=== PATIENT | female | born 1985 | race Caucasian/White ===

== ENCOUNTER 2017-02-02 01:21 | Inpatient (IN) | payer OTHER ==
[~2017-02-02] VITALS: Ht 160 cm; Wt 99.8 kg
[2017-02-02] MEDS ORDERED: PREN1TAB87 PO (07:49)
[2017-02-02] MEDS ORDERED: Methylergonovine 0.2 mg/mL Inj IM PRN ×2 (07:50→19:20)
[2017-02-02] MEDS ORDERED: Oxytocin 10 Unit/mL Inj IM PRN ×2 (07:50→19:20)
[2017-02-02] MEDS ORDERED: Carboprost 250 mCg/mL Inj IM PRN ×2 (07:50→19:20)
[2017-02-02] MEDS ORDERED: Hemorrhage Kit, Post Partum XX ONE ×2 (07:50→19:20)
--- NOTE | 2017-02-02 08:08 | PCM.HPOB ---
Subjective Date of Service: Feb 02, 2017 Referring Provider: Admitting Physician: Almaz Poole MD Primary Care Physician: Almaz Poole MD Attending Physician: Almaz Poole MD Chief Complaint Elective IOL History of Present History of Present Illness Patient is a 31 year old at 39 weeks 5 day GA with an HEIDI of 02/04/2017 based on first trimester ultrasound who presented to the [facility] for an elective induction. She continues to have contractions every 10-30 minutes, on average every 16 minutes. She felt a trickle of fluid on Wednesday evening but has not felt more fluid gushes since then. On Wednesday, she had 3 negative SROM tests. She has not had any vaginal bleeding. She has a mild frontal headache. No vision changes, upper abdominal pain, vomiting, chest pain , dyspnea, dizziness, lightheadedness, or increased swelling in her legs. During this , she has had fundal height greater than dates but most recent ultrasound showed EFW percentile 55% on 12/24/2016. She is also GBS positive. She also was admitted for elective IOL on 01/29, but there was no progress after Cervidil, Oxytocin, and cervical balloon ripening, so she was d/ c home. OB History: (3), Para (2) Past Medical History Obstetrical History: Obstetrical History: History of 2 prior NSVDs with induction by Pitocin in 2005 and 2007 Gynecologic History: Menarche 9 years old Medical History: Seasonal allergies Surgical History: Knee surgery Tonsillectomy Hx Tobacco Use: No Hx Alcohol Use: No Hx Substance Use: No Past Family History Family History Extensive family history of HTN Living Arrangement: with Family Genetic Screening/Counseling Genetic Screening/Counseling: Negative Baby father-had child w defect: No Review of Systems Constitutional: Y: Pain, Fever Eyes: Denies: Blurred Vision, Vision Changes ENT: Denies: Nose Pain, Throat Pain Cardiovascular: Reports: Edema, Denies: Chest Pain Respiratory: Denies: Cough, Wheezing Gastrointestinal: Reports: Abdominal Pain, Denies: Diarrhea, Vomiting Genitourinary: Denies: Dysuria, Incontinence Musculoskeletal: Denies: Redness, Swelling Skin/Breasts: Denies: Discharge, Lesions Skin: Denies: Rash, Ulcers Neurological: Denies: Confusion, Weakness Psychologic: Denies: Agitation, Depression Medications Home medications Vitamins Allergy Coded Allergies: Penicillins (Verified Allergy, Severe, Anaphylaxis, 01/29/17) latex (Verified Adverse Reaction, Mild, Rash, 01/29/17) Exam Vital Signs BP 124/73, HR 82 bpm, respiratory rate 16, 36.3 C Exam FHR baseline 130s with moderate variability and accelerations, no decelerations noted. Cat I tracing. Objective Constitutional: Well-developed, Well-nourished, Obese HEENT: PERRLA, EOMI, Scleral Anicteric, Mucous Membr Moist/[place] Lungs: Clear to Auscultation, Normal Air Movement Heart: Exam Unremarkable, Regular Rate/Rhythm, Murmur Abdomen: Gravid, No tenderness Lymphatic: Normal: Axilla Palpation of Nodes, Neck Palpation of Nodes Extremities: Pulses Palpable x4, Warm, No Edema Skin: Other (warm, dry ,intact, no rashes noted) Neurological/Psychiatric: Alert, Oriented X3, Cooperative, No Acute Distress Neuro: Grossly Neurologically Intact, Reflexes 2+, Normal DTRs, Normal Tone, Normal Speech, Sensation Intact Gynecologic: Normal: Breasts Labs/Diagnostics Maternal Blood Type: B Hx Rho(D) Immune Globulin: No Antibody Screen: neg Group B Strep Results: Positive Rubella: Immune Additional Information Additional Information labs: blood type B positive, antibody negative, varicella immune, rubella immune, RPR non reactive, HBsAg negative, HIV non reactive, hepatitis C negative, HgbA1c 5.1%, TSH 1.350, 1 hour glucose tolerance test within normal limits, GBS positive OB Intrapartum Assessment/Plan Assessment 31 year old woman at 39 weeks 5 day gestation with an HEIDI of 02/04/2017 based on 6 weeks 5 days ultrasound. is complicated by GBS positive and failed first induction attempt on 01/29/2017 Intrapartum plan Admitted for elective IOL, 2nd attempt - Irregular contractions - Elective induction, start with Pitocin - Monitor patient for the next 4-5 hours, then will reassess cervix and consider cervical ripening - Anticipate - Continue routine intrapartum care GBS positive - Patient has history of an anaphylactic reaction to penicillin - Sensitivities of GBS culture were not performed - Vancomycin for prophylaxis per protocol Pain Evaluation: Adequate Pain Control VTE Mechanical Devices: Intermittant Pneumatic CD Post plan: Continue routine post care Javon Carrizales DO Feb 02, 2017 08:08
[2017-02-02] MEDS ORDERED: Vancomycin Inj 1,000 MG in IV Premix 1 EACH IV SCH ×2 (08:30→19:20)
[2017-02-02] MEDS: Lactated Ringer's 1,000 ML IV SCH ×6 (09:00→23:46)
[2017-02-02] MEDS: Oxytocin 30 Units/500 mL LR 30 UNITS in IV Premix 1 EACH IV PRN ×2 (09:01→19:34)
[2017-02-02 09:25] LABS: Mean Corpuscular Hemoglobin 29.9 pg (27.0-35.0); Mean Corpuscular Volume 90.5 fL (81-100)
[2017-02-02] MEDS ORDERED: Lidocaine 1%-Epi 1:100,000 20 mL Inj ONE (12:29)
[2017-02-02] MEDS ORDERED: MetoCLOpramide 5 mg/mL 2 mL Inj ONE (12:30)
[2017-02-02] MEDS ORDERED: Dexamethasone 4 mg/mL Inj ONE (12:30)
[2017-02-02] MEDS ORDERED: Phenylephrine 10,000 mCg/mL Inj ONE (12:30)
[2017-02-02] MEDS ORDERED: Ondansetron 2 mg/mL 2 mL Inj ONE (12:30)
[2017-02-02] MEDS ORDERED: Oxytocin 10 Unit/mL Inj ONE (12:30)
--- NOTE | 2017-02-02 14:07 | PCM.HPANE ---
Patient Data Surgeon Admitting Provider:Almaz Poole MD Attending Provider:Almaz Poole MD Primary Care Physician:Almaz Poole MD Other Provider:Giuseppe Chan Anesthesia Reason for Visit Induction INDUCTION Ht/WT & BMI Body Mass Index Allergies Coded Allergies: Penicillins (Verified Allergy, Severe, Anaphylaxis, 01/29/17) latex (Verified Adverse Reaction, Mild, Rash, 01/29/17) Past Anesthesia History Anesthesia History: Denies:: Abnormal Airway, Anesthesia Reactions, Difficult Intubation, Fam Anesthesia Reaction, Fam Malignant Hypertherm, Malignant Hyperthermia Medications Reported Medications Vit W-Ca,Fe,FA(<1 mg) ( Vitamins)1 Each Tablet1 Each PO DAILY 02/02/17 History History of ENT Problems?: No HEENT History: Denies:: Abnormal Airway Cataracts Difficult Intubation Dysphagia Glaucoma Hearing Problem Sinus Problem TMJ Denture Type: None Teeth Condition: Within Normal Limits Hx of Heart Problems?: No Cardiovascular History: Denies:: AICD Abdominal Aortic Aneurism Atrial Fibrillation Cardiac Surgery Chest Pain Congestive Heart Failure Coronary Artery Disease Edema Heart Murmur Hypertension Irregular Heartbeat Pacemaker Peripheral Vascular Rheumatic Fever Thrombophlebitis Valvular Heart Disease Hx of Respiratory Problem?: No Respiratory History: Denies:: Asthma COPD Chest Surgery Cough Dyspnea Emphysema Hemoptysis Oxygen Administration Pneumonia Pulmonary Embolism Tuberculosis Use of C-PAP Machine Use of Inhalers / NEBS Hx Neurologic Problems?: No Neurological History: Denies:: Alzheimer's Disease CVA Dementia Dizziness Headaches Multiple Sclerosis Parkinson's Disease Peripheral Neuropathy Seizures TIA Hx of GI Problems?: No Gastrointestinal History: Denies:: Cirrhosis Diverticulitis Gall Bladder Disease Gastroesphageal Reflux Gastrointestinal Bleeding Heartburn Hepatitis Hiatal Hernia Liver Disease Rectal Bleeding Hx of Problems?: No Hx Musculoskeletal Problems?: No Hx Surgeries?: Yes Hx Alcohol Use: NoHx Substance Use: No Smoking Status: Never Smoker Stop/Bang Risk Assessment Category Category 1A: Patient has history of documented sleep apnea, and HAS NOT received any narcotic, sedative or anesthesia administration during this stay. Category 1B: Patient has history of documented sleep apnea, and HAS received any narcotic , sedative or anesthesia administration during this stay Category 2: Patient has SUSPECTED Obstructive Sleep Apnea, and HAS received any narcotic , sedative or anesthesia administration during this stay. Category 3: Patient has SUSPECTED Obstructive Sleep Apnea and HAS NOT received narcotic, sedative or anesthesia administration during this stay. Category 4: Outpatient in Procedural Areas with known sleep apnea or who screen positive for High Risk via the STOP/BANG questionnaire. Exam Exam General Appearance: Alert, Oriented X3, Cooperative, No Acute Distress HEENT/AIRWAY: MP 2 Lungs: Clear to Auscultation, Normal Air Movement Heart: Exam Unremarkable, Regular Rate/Rhythm Meds/Labs/Diagnostics Admission Meds Current Medications Lactated Ringer's 1,000 ml @ 125 mls/hr Q8H IV Last administered on 02/02/17 09:00; Start 02/02/17 at 07:46 Vancomycin/0.9 % Sod Chloride/ Premix (Vancomycin Inj/ IV Premix) 200 ml @ 106.667 mls/hr Q12H IV Last administered on 02/02/17 09:01; Start 02/02/17 at 08:30 Labs Test 02/02/17 08:45 White Blood Count 9.7th/mm3 (3.8-10.1) Red Blood Count 4.12mil/mm3 (3.90-5.20) Hemoglobin 12.3g/dL (12.0-15.6) Hematocrit 37.3% (35.0-46.0) Mean Corpuscular Volume 90.5fL (81-100) Mean Corpuscular Hemoglobin 29.9pg (27.0-35.0) Mean Corpuscular Hemoglobin Concent 33.0% (32.0-37.0) Red Cell Distribution Width 13.9% (12.3-15.4) Platelet Count 325bil/L (150-400) Plan Impression Patient chart reviewed, patient interviewed and anesthestic plan with risks, benefits, and alternatives discussed, and informed consent obtained. ASA Physical Status: ASA2 Mod Systemic Disease Anesthetic Plan: Epidural Bene/Risks/Altern/Consents: Yes HP Complete Prior to Induction: Yes Maxi Allison MD Feb 02, 2017 14:03
[2017-02-02] MEDS ORDERED: Lactated Ringer's 500 ML IV ONE (14:39)
[2017-02-02] MEDS ORDERED: EPHEDrine Sulfate 50 mg/mL Inj IVPUSH PRN ×2 (14:40→19:25)
[2017-02-02] MEDS ORDERED: Ondansetron 2 mg/mL 2 mL Inj IVPUSH PRN ×2 (14:40→19:25)
[2017-02-02] MEDS ORDERED: fentaNYL 2 mCg/mL-Bupiv 0.125% 100 ML EPIDURAL SCH (14:40)
[2017-02-02] MEDS ORDERED: Atropine 1 mg/10 mL (Code) Syringe IVPUSH PRN (14:40)
[2017-02-02] MEDS: Sodium Chloride LOK Flush 10 mL Syringe IVFLUSH SCH (16:30)
[2017-02-02] MEDS ORDERED: Benzocaine (Dermoplast) 20% 60 Gm Spray TOPICAL PRN (19:20)
[2017-02-02] MEDS ORDERED: Measles-Mumps-Rubella Vaccine 0.5 mL Inj SUBQ ONE (19:20)
[2017-02-02] MEDS ORDERED: oxyCODONE-Acetamin 5-325 mg Tablet PO PRN (19:20)
[2017-02-02] MEDS ORDERED: Witch Hazel-Glycerin Pads TOPICAL PRN (19:20)
[2017-02-02] MEDS ORDERED: LANOlin HPA 7 Gm Ointment TOPICAL PRN (19:20)
[2017-02-02] MEDS ORDERED: Oxytocin 30 Units/500 mL LR 30 UNITS in IV Premix 1 EACH IV PRN (19:20)
[2017-02-02] MEDS ORDERED: Lactated Ringer's 1,000 ML IV PRN (19:21)
--- NOTE | 2017-02-02 19:21 | PCM.ANEP1 ---
Post Anesthesia PACU Phase 1 Assessment Anesthetic Administered: Epidural Level of Alertness: Awake, talking WATTS's with Equal Strength: No Pain: No Nausea or Vomiting: Yes CV Function & Hydration Stable: Yes Airway Device: Oxygen Delivery: Room Air Lungs: Clear to Auscultation, Normal Air Movement PACU Phase 2 Assessment Complications: No Patient Instructions Provided: N/A Maxi Allison MD Feb 02, 2017 19:21
[2017-02-02] MEDS ORDERED: Atropine 0.4 mg/mL Inj IV PRN (19:25)
[2017-02-02] MEDS ORDERED: fentaNYL-PF 50 mCg/mL 2 mL Inj IVPUSH PRN (19:25)
[2017-02-02] MEDS ORDERED: HYDROmorphone 1 mg/mL Inj IVPUSH PRN (19:25)
[2017-02-02] MEDS ORDERED: Dexamethasone 4 mg/mL Inj IVPUSH PRN (19:25)
[2017-02-02] MEDS ORDERED: Phenylephrine/NS-PF 100 mCg/mL 5 mL Syringe IVPUSH PRN (19:25)
--- NOTE | 2017-02-02 21:06 | DRSVH ---
PROCEDURE: US PELVIC SONOGRAM INDICATIONS: VERIFY PLACENTA IS COMPLETELY REMOVED FROM UTERIS TECHNIQUE: Real-time transabdominal scanning was performed of the pelvic organs, with image documentation. COMPARISON: None. FINDINGS: Uterus: Uterus is enlarged as delivery was within the last 24 hours. Uterus measures 19.8 x 9.2 x 14 .6 cm. Endometrium measures 4.1 mm in combined thickness. No abnormal vascularity is seen in the reg ion of the endometrium and no abnormal echo pattern is seen in the region of the endometrium. There i s no fluid present. Ovaries: Were not identified transabdominally Other: No free pelvic fluid. Limited scanning through the kidneys shows no hydronephrosis. IMPRESSION: In this patient status post recent delivery there is no evidence for retained products of conception by transabdominal ultrasound. Dictated by: Liang Hill M.D. on 02/02/2017 at 21:02 Approved by: Liang Hill M.D. on 02/02/2017 at 21:04
--- NOTE | 2017-02-02 22:52 | OP ---
[address] [address] OPERATIVE REPORT PATIENT: CHARLOTTE ASCENCIO : 1985 MR#: [id number] ADMIT: 02/02/2017 JOB ID: [id number] DATE OF SURGERY: 02/02/2017 PREOPERATIVE DIAGNOSIS(ES): 1. Intrauterine at 39 weeks and 5 days. 2. Elective induction of labor. POSTOPERATIVE DIAGNOSIS(ES): 1. Intrauterine at 39 weeks and 5 days. 2. Elective induction of labor. 3. Status post spontaneous vaginal delivery. 4. Status post manual extraction of the placenta. SURGEON: Benny Garibay MD. MODERN DANCER: None. ANESTHESIA: Epidural. ESTIMATED BLOOD LOSS: Total estimated blood loss 1300 mL. OUTCOME: Female 7 pounds, 4 ounces. Apgars 9 and 9 at one and five minutes respectively, delivered with no nuchal cord. Shoulders delivered without difficulty. PROCEDURE: This is a 31 years old 3, para 2-0-0-2, who was admitted at 39 weeks and 5 days with expected date of delivery of February 04, 2017 by first trimester ultrasound. The patient was admitted for elective induction of labor. Induction of labor was started with Pitocin and artificial rupture of membranes was performed at 12:38. The patient was found to be completely dilated at 17:17. She pushed effectively to deliver at 17:27 via spontaneous vaginal delivery over an intact perineum under epidural anesthesia. Delivered a female infant in cephalic presentation with no nuchal cord. Shoulders delivered without difficulty. Apgars were 9 and 9 at one and five minutes respectively. was placed on the maternal abdomen. Delayed cord clamping was performed after one minute. Cord blood was collected for gases, then active management of third stage of labor was performed with gentle traction on the cord, fundal massage, and oxytocin was started. The placenta was not delivered after over 30 minutes. Manual extraction of the placenta was attempted in the delivery room under the epidural anesthesia, but anesthesia was not adequate so patient was transferred to the operation room after informed consent was obtained. Then, epidural was rebolused to adequate level and nitroglycerin was administered 50 mcg dose was given. An attempt to remove the placenta manually was still difficult so patient was given another dose of 50 of nitroglycerin and continued attempts to separate the placenta manually. Then, patient was given a third dose of 20 mcg of nitroglycerin and the placenta was then extracted in pieces until manual separation of the placenta was achieved and the rest of the placenta was extracted. Exploration of the uterine cavity was performed with the surgeon's digits without any remaining placental tissue. The patient continued to receive Pitocin IV and she was given 800 mcg of misoprostol rectally for hemostasis. Uterus was firm and bleeding was minimal after the complete placenta extraction. Perineum was examined with no laceration. Cervix was examined with no laceration. All instrument, needles and sponge counts were correct x2. The patient received vancomycin during labor for group B strep prophylaxis for history of severe anaphylactic reaction to penicillin. The patient was given an additional dose of vancomycin in the operation room before manual extraction. The patient tolerated the procedure well and was transferred to the recovery room in stable condition. Ultrasound was performed confirming complete extraction of the placenta with no evidence of retained products of conception. Official report is pending. Repeat hemoglobin was obtained three hours after delivery of the placenta. Initial hemoglobin was 12.3, postop hemoglobin was 11.4, preop hematocrit was 37.3, postop hematocrit 34.4. Benny Red MD was present and scrubbed for the entire procedure.
[2017-02-03] MEDS: Sodium Chloride LOK Flush 10 mL Syringe IVFLUSH SCH ×3 (00:30→16:30)
[2017-02-03] MEDS: Lactated Ringer's 1,000 ML IV SCH ×8 (03:19→23:46)
--- NOTE | 2017-02-03 06:59 | PCM.PNOBPP ---
Subjective Date of Service Feb 03, 2017 Post : Spontaneous Vaginal Delivery Subjective The patient is feeling well today. She has a slight headache that she relates to not having coffee in a few days. She is having mild pain well managed with ibuprofen and acetaminophen. Lochia: Light Pain Management: PO pain meds Gastrointestinal: Good Appetite, No N/V Postop Activity: Ambulating Independently Group B Strep Results: Positive Rubella: Immune Blood Type: B Labs Laboratory Tests 02/02/17 08:45: White Blood Count 9.7, Red Blood Count 4.12, Mean Corpuscular Volume 90.5, Mean Corpuscular Hemoglobin 29.9, Mean Corpuscular Hemoglobin Concent 33.0, Red Cell Distribution Width 13.9, Platelet Count 325 02/02/17 20:50: Hemoglobin 11.4, Hematocrit 34.4 Exam Vital Signs Vital Signs: VS reviewed, stable Exam Abdomen: Uterus is (at the height of the umbillicus), Fundus spongy Extremities: No cords, No edema Lungs: Clear to Auscultation Heart: Exam Unremarkable, Regular Rate/Rhythm General: Alert, Oriented X3 OB Post Assessment/Plan Problems: (1) Vaginal delivery Status: Resolved ICD Code: O80 (2) Retained placenta with delivery, with complication Status: Resolved ICD Code: O73.0 Pain Evaluation: Adequate Pain Control VTE Mechanical Devices: Intermittant Pneumatic CD Post plan: Continue routine post care Plan: - GBS positive recieved one dose of vancomycin at 0900 - Retained placenta removed without incident manually - Review H&H this morning - continue routine care - Probable discharge later this afternoon if H&H stable Attending Statement The patient was seen and examined together with Dr. Thais Doyle DO on 2016 and I agree with the history, exam and plan as outlined in the note above. Thais Doyle DO Feb 03, 2017 06:59 Leona Lomeli MD Feb 09, 2017 07:53
[2017-02-03 08:01] LABS: Mean Corpuscular Hemoglobin 30.4 pg (27.0-35.0); Mean Corpuscular Volume 91.1 fL (81-100)
[2017-02-03] MEDS: Ascorbic Acid 500 mg Tablet PO SCH (08:23)
[2017-02-04] MEDS: Sodium Chloride LOK Flush 10 mL Syringe IVFLUSH SCH ×2 (00:30→08:30)
[2017-02-04] MEDS: Lactated Ringer's 1,000 ML IV SCH ×3 (03:19→11:19)
--- NOTE | 2017-02-04 07:33 | PCM.DIOB ---
Obstetrical Disch Instruction Date of Service: Feb 04, 2017 Dates of Hospitalization Date of Hospital Admission Feb 02, 2017 at 06:50 Providers Admitting Physician: Almaz Poole MD Primary Care Physician: Almaz Poole MD Attending Physician: Almaz Poole MD Discharge Diagnosis Discharge Diagnosis Elective IOL Problems: (1) Vaginal delivery Status: Resolved ICD Code: O80 (2) Retained placenta with delivery, with complication Status: Resolved ICD Code: O73.0 Diet Discharge Diet: No restrictions Activity Discharge Activity-General: No restrictions, Pelvic Rest for 6 weeks, Try not to overdue, Be up and about, Balance rest and activity, Activity as pain allows , Activity as energy allows, No lifting >15 pounds for 2 weeks Dressing and Incisional Care Hygiene: May shower, NO bathtub, hot tub or whirlpool, Sitz bath Additional Instructions Discharge Instructions Continue your vitamin. You may take Tylenol and ibuprofen for any pain. Do not exceed 3 g of Tylenol daily. Be sure to follow up in 2 weeks and then again in [facility] at [facility]. Pelvic rest for 6 weeks (nothing per vagina including intercourse, tampons) If you have a fever greater than 100.4, please call [facility]. There is always someone medical device sales consultant to talk to. If you have an increase in bleeding, call [facility]. If you have a lot of bleeding suddenly, especially if you have symptoms of dizziness & weakness with it, get emergency help. If you start experiencing extreme depression, especially if you feel that you are a danger to yourself or your family, seek emergency help. You have been through a lot -- BE SURE TO TAKE CARE OF YOURSELF. Follow Up Plan Follow Up Plan Follow-up in [facility] in 6 weeks. Follow-up appointment: Weeks (6) Call your provider for: Fever or Chills, Shortness of breath, Heavy vaginal bleeding, Excessive constipation, Vaginal discomfort, Red painful breasts Thais Doyle DO Feb 03, 2017 07:57
[2017-02-04] MEDS: Ascorbic Acid 500 mg Tablet PO SCH (07:42)
--- NOTE | 2017-02-04 08:23 | PCM.DC.OB ---
Obstetrical Discharge Summary Date of Service Feb 04, 2017 Date of hospital admission Feb 02, 2017 at 06:50 Date of Discharge: Feb 04, 2017 Providers Admitting Physician: Almaz Poole MD Primary Care Physician: Almaz Poole MD Attending Physician: Almaz Poole MD Problems: (1) Vaginal delivery Status: Resolved ICD Code: O80 (2) Retained placenta with delivery, with complication Status: Resolved ICD Code: O73.0 Invasive procedures Manual extraction of retained placenta Date of Procedure: Feb 02, 2017 Brief History and Physical: Patient is a 31 year old now at 39 weeks 5 day GA with an HEIDI of 2016 based on first trimester ultrasound who presented to the [facility] for an elective induction. She was having contractions every 10-30 minutes, on average every 16 minutes. She felt a trickle of fluid on Wednesday evening but has not felt more fluid gushes since then. On Wednesday, she had 3 negative SROM tests. She had no vaginal bleeding. She was having mild frontal headache. No vision changes, upper abdominal pain, vomiting, chest pain, dyspnea , dizziness, lightheadedness, or increased swelling in her legs. She pushed effectively to deliver at 17:27 via spontaneous vaginal delivery over an intact perineum under epidural anesthesia. Delivered a female infant in cephalic presentation with no nuchal cord. Shoulders delivered without difficulty. Apgars were 9 and 9 at one and five minutes respectively. was placed on the maternal abdomen. Delayed cord clamping was performed after one minute. Manual extraction of the placenta was required. During this , she has had fundal height greater than dates but most recent ultrasound showed EFW percentile 55% on 12/24/2016. She is also GBS positive. She also was admitted for elective IOL on 01/29, but there was no progress after Cervidil, Oxytocin, and cervical balloon ripening, so she was d/ c home. Abdomen: Uterus is (at the height of the umbillicus), Fundus spongy Extremities: No cords, No edema Lungs: Clear to Auscultation Heart: Exam Unremarkable, Regular Rate/Rhythm General: Alert, Oriented X3 Hospital Course: Patient presented to the [facility] for an elective induction on . She was having contractions every 10-30 minutes. She felt a trickle of fluid on Wednesday evening but has not felt more fluid gushes since then. On Wednesday , she had 3 negative SROM tests. Induction of labor was started with Pitocin and artificial rupture of membranes was performed at 12:38 on February 03 2017. The patient was found to be completely dilated at 17:17. She pushed effectively to deliver at 17:27 via spontaneous vaginal delivery over an intact perineum under epidural anesthesia. Delivered a female infant with Apgars of 9 and 9 at one and five minutes respectively. The placenta was not delivered after over 30 minutes. Manual extraction of the placenta was attempted in the delivery room failed secondary to patient comfort. She was transferred to the OR where manual extraction was completed with US conformation. Since the manual extraction she has had an eventful stay and will be discharged home on 02/04/2017. Vit W-Ca,Fe,FA(<1 mg) ( Vitamins) 1 Each Tablet 1 EACH PO DAILY (Reported) Disposition Home Follow-up plan Follow-up with [facility] in 6 weeks Discharge Diet: No restrictions Discharge Activity-General: No restrictions, Pelvic Rest for 6 weeks, Try not to overdue, Be up and about, Balance rest and activity, Activity as pain allows , Activity as energy allows copies to: Martin Macario MD, Brook L DO Feb 04, 2017 07:36
[2017-02-04 11:01] VITALS: BP 121/72; PULSE 85; RESP 18
--- NOTE | 2017-02-05 14:24 | PATH ---
SURGICAL PATHOLOGY Attending Physician:Benny Garibay CASE STATUS: Signed Out PATIENT NAME: ASCENCIOCHARLOTTE PID: [id number] : 1985 DATE COLLECTED:02/02/2017 00:00 SPECIMEN: Placenta CLINICAL HISTORY: RETAINED PLACENTA REMOVED MANUALLY IN PIECES 1). PLACENTA IN PIECES FINAL DIAGNOSIS: Retained placenta, Removed Manually in Pieces: - Bar placenta removed in pieces, weight 312 grams, approximately less than 10th percentile for gestational age (see comment). - Mild focal mixed inflammation involving decidua. -Three-vessel umbilical cord negative for funisitis. - membranes with no chorioamnionitis. - Villous morphology consistent with estimated gestational age. ICD10: O73. NOTE: The fragmented nature of the placenta precludes accurate assessment of placental weight for gestational age. GROSS DESCRIPTION: The specimen is received in formalin, labeled with the patient's name, and consists of a placenta in multiple pieces (312 g, 25.0 x 15.0 x 3.5 cm in aggregate) partially attached by the surface with membranes and a semi-detached umbilical cord (length- 7.5 cm, diameter-1.0 x 0.6 cm). The membranes are translucent. The rupture site cannot be determined. The umbilical cord contains 3 vessels. The attachment site cannot be determined. The surface is smooth and shiny with no evidence of meconium identified. The maternal surface is dark maroon with apparent normal cotyledon formation. The placental body is spongy with no nodules, masses, lesions, hematomas or infarcts identified. Section code: (A) edge of placenta with membranes, umbilical cord; (B-E) placenta, 4 full-thickness sections. 02/04/17 ICD-9 CODES: CPT CODES: 1: 93539 Electronically Signed Out Vicente Dumont MD [facility] [address], [place] [address] Technical component performed at [facility], [address], [place], [address]
== END 2017-02-04 11:48 | disposition home or self-care (01) | DRG 774 ==
LOC: FBC 06:50
PROVIDERS: ADMIT Obstetrics & Gynecology; ATTEND Obstetrics & Gynecology
PROC: 10E0XZZ Delivery of Products of Conception, External Approach (ICD-10-PCS; principal; 2017-02-02)
PROC: 10907ZC Drainage of Amniotic Fluid, Therapeutic from Products of Conception, Via Natural or Artificial Opening (ICD-10-PCS; 2017-02-02)
DX: O73.1 Retained portions of placenta and membranes, without hemorrhage (principal); O99.824 Streptococcus B carrier state complicating childbirth; Z37.0 Single live birth; Z3A.39 39 weeks gestation of pregnancy